=== PATIENT | female | born 1965 | race Asian ===

== ENCOUNTER 2017-10-19 17:31 | Emergency (ER) | payer OTHER ==
[~2017-10-19] VITALS: Ht 160 cm; Wt 63.4 kg
[~2017-10-19 17:31] MED LIST: ALLO100T PO; AMLO10TA80 PO; ATOR-2 PO; FOLI0.8T42 PO; INSLIS SUBCUT; METO-385 PO; lantus
[2017-10-20 00:34] VITALS: BP 150/70
== END 2017-10-20 00:35 | disposition home or self-care (01) ==
LOC: ER 17:31
DX: Z49.01 Encounter for fitting and adjustment of extracorporeal dialysis catheter (principal); N18.6 End stage renal disease; Z79.4 Long term (current) use of insulin; Z89.619 Acquired absence of unspecified leg above knee
CPT/HCPCS: 99283; Z7610

== ENCOUNTER 2018-08-29 19:19 | Inpatient (IN) | payer OTHER ==
[~2018-08-29] VITALS: Ht 157.5 cm; Wt 70.8 kg
[~2018-08-29 19:19] MED LIST changes: -lantus; +lantus SUBCUT
[2018-08-29 20:16] LABS: BASOPHILS % 0.5 % (0.0-2.0); EOSINOPHILS % 1.7 % (0.0-5.0); LYMPHOCYTES % 7.2 % (20.0-50.0); MEAN CORPUSCULAR HEMOGLOBIN 31.5 pg (28.0-32.0); MEAN CORPUSCULAR VOLUME 93.9 fL (81.0-99.0); MEAN PLATELET VOLUME 8.4 fl (7.4-10.4); MONOCYTES % 5.4 % (2.0-8.0); NEUTROPHILS % 85.2 % (40.0-76.0); PLATELET 131 x1000/uL (130-400); RED BLOOD CELL COUNT 2.13 mill/uL (4.2-5.4); RED CELL DISTRIBUTION WIDTH 15.2 % (11.6-14.6)
[2018-08-29 20:19] LABS: CHLORIDE 95 mEq/L (98-107)
[2018-08-29 20:21] LABS: HEMOGLOBIN. 6.7 g/dL (12.0-16.0)
[2018-08-29 20:22] LABS: PROTHROMBIN TIME 10.8 sec (9.6-11.0)
[2018-08-30] VITALS (15 sets, daily range): BP systolic 134–156; BP diastolic 66–89
[2018-08-30] MEDS ORDERED: SEVE800T8 MT (00:59)
[2018-08-30] MEDS ORDERED: CHOL100046 PO (01:00)
[2018-08-30] MEDS ORDERED: CINA30 PO (01:01)
[2018-08-30] MEDS ORDERED: DEXTROSE 50% WATER 50ML SYRINGE IV PRN (01:15)
[2018-08-30] MEDS ORDERED: MORPHINE SULFATE 4 MG/ML CPJ (NOT FOR IM USE) IV PRN (01:15)
[2018-08-30] MEDS ORDERED: CLONIDINE 0.1MG TABLET PO PRN (01:15)
[2018-08-30] MEDS: BLOOD SUGAR DIAGNOSTIC STRIP TEST SCH ×4 (06:23→21:28)
[2018-08-30] MEDS: INSULIN LISPRO 100 UNITS/ML SUBCUT SCH ×4 (08:03→21:00)
[2018-08-30 08:47] LABS: BASOPHILS % 0.6 % (0.0-2.0); EOSINOPHILS % 2.2 % (0.0-5.0); HEMATOCRIT. 26.8 % (36.0-48.0); HEMOGLOBIN. 9.1 g/dL (12.0-16.0); MEAN CORPUSCULAR HEMOGLOBIN 30.9 pg (28.0-32.0); MEAN PLATELET VOLUME 8.5 fl (7.4-10.4); MONOCYTES % 5.7 % (2.0-8.0); NEUTROPHILS % 79.5 % (40.0-76.0); PLATELET 124 x1000/uL (130-400); RED BLOOD CELL COUNT 2.94 mill/uL (4.2-5.4); RED CELL DISTRIBUTION WIDTH 15.9 % (11.6-14.6); TOTAL IRON BINDING CAPACITY 268 ug/dL (250-450)
[2018-08-30] MEDS ORDERED: SEVELAMER CARBONATE 800 MG TABLET PO SCH (09:00)
[2018-08-30] MEDS: FOLIC ACID/VITAMIN B COMP W-C TABLET PO SCH (09:00)
[2018-08-30] MEDS ORDERED: INSULIN LISPRO SUBCUT SCH (09:00)
[2018-08-30] MEDS ORDERED: CINACALCET HCL 30MG TABLET PO SCH (09:00)
[2018-08-30] MEDS: CHOLECALCIFEROL (D3) 1000 UNIT TABLET PO SCH (09:11)
[2018-08-30] MEDS: AMLODIPINE 10MG TABLET PO SCH (09:13)
[2018-08-30] MEDS ORDERED: INSULIN GLARGINE UD 100 UNITS/ML SYR SUBCUT SCH (10:00)
[2018-08-30] MEDS ORDERED: PANTOPRAZOLE SODIUM 40 MG/VIAL IV SCH (11:00)
[2018-08-30] MEDS: PANTOPRAZOLE SODIUM 40 MG/VIAL IV SCH (16:33)
[2018-08-30] MEDS ORDERED: ATORVASTATIN CALCIUM 40MG TABLET PO SCH (21:00)
[2018-08-30] MEDS ORDERED: EPOETIN ALFA 10000UNITS/ML VIAL SUBCUT SCH (21:00)
[2018-08-31] VITALS: BP 141/54
[2018-08-31 04:00] VITALS: BP 137/58
[2018-08-31 06:00] LABS: BASOPHILS % 0.8 % (0.0-2.0); EOSINOPHILS % 6.5 % (0.0-5.0); HEMATOCRIT. 23.8 % (36.0-48.0); HEMOGLOBIN. 8.2 g/dL (12.0-16.0); LYMPHOCYTES % 15.3 % (20.0-50.0); MEAN CORPUSCULAR VOLUME 90.4 fL (81.0-99.0); MEAN PLATELET VOLUME 8.4 fl (7.4-10.4); NEUTROPHILS % 68.4 % (40.0-76.0); PLATELET 122 x1000/uL (130-400); RED BLOOD CELL COUNT 2.63 mill/uL (4.2-5.4); RED CELL DISTRIBUTION WIDTH 16.2 % (11.6-14.6)
[2018-08-31] MEDS: BLOOD SUGAR DIAGNOSTIC STRIP TEST SCH ×3 (06:07→17:20)
[2018-08-31] MEDS: INSULIN LISPRO 100 UNITS/ML SUBCUT SCH ×3 (06:11→17:50)
[2018-08-31 08:00] VITALS: BP 127/61
[2018-08-31] MEDS: FOLIC ACID/VITAMIN B COMP W-C TABLET PO SCH (09:00)
[2018-08-31] MEDS: AMLODIPINE 10MG TABLET PO SCH (09:00)
[2018-08-31] MEDS: CHOLECALCIFEROL (D3) 1000 UNIT TABLET PO SCH (09:00)
[2018-08-31] MEDS: PANTOPRAZOLE SODIUM 40 MG/VIAL IV SCH ×2 (09:08→17:23)
[2018-08-31] MEDS ORDERED: INSULIN GLARGINE UD 100 UNITS/ML SYR SUBCUT SCH (10:00)
[2018-08-31] MEDS ORDERED: PROPOFOL 200MG/20ML VIAL IV ONE (10:05)
[2018-08-31] MEDS ORDERED: MIDAZOLAM HCL 2 MG/2 ML VIAL ONE (10:06)
[2018-08-31 11:49] VITALS: BP 157/67
[2018-08-31] MEDS ORDERED: SIMETHICONE 40 MG/0.6 ML 30ML ONE (13:40)
[2018-08-31] MEDS ORDERED: MIDAZOLAM HCL 2 MG/2 ML VIAL IV PRN (13:40)
[2018-08-31] MEDS ORDERED: MIDAZOLAM HCL 5 MG/5 ML VIAL ONE (13:40)
[2018-08-31] MEDS ORDERED: FENTANYL CITRATE/PF 50MCG/ML 2ML VIAL ONE (13:40)
[2018-08-31] MEDS ORDERED: FENTANYL CITRATE/PF 50MCG/ML 2ML VIAL IV PRN (13:41)
[2018-08-31] MEDS ORDERED: BACTERIOSTATIC SODIUM CHLORIDE 0.9% 30ML VIAL IJ ONE (13:48)
[2018-08-31 15:58] VITALS: BP 156/73
[2018-08-31 16:35] LABS: HEMATOCRIT 26.8 % (36.0-48.0); HEMOGLOBIN 9.1 g/dL (12.0-16.0)
[2018-08-31] MEDS ORDERED: SUCRALFATE 1 G/10 ML UDC PO SCH (17:20)
[2018-08-31 17:39] VITALS: BP 145/73
== END 2018-08-31 18:15 | disposition home or self-care (01) | DRG 377 ==
LOC: ER 19:19 → EDBEDREQ 21:42 → EDBEDREQTM 21:42 → ENRESERV 22:41 → 6WST 23:59
PROVIDERS: ADMIT Internal Medicine; ATTEND Internal Medicine
PROC: 30233N1 Transfusion of Nonautologous Red Blood Cells into Peripheral Vein, Percutaneous Approach (ICD-10-PCS; principal; 2018-08-29)
PROC: 5A1D70Z Performance of Urinary Filtration, Intermittent, Less than 6 Hours Per Day (ICD-10-PCS; 2018-08-30)
PROC: 5A1D70Z Performance of Urinary Filtration, Intermittent, Less than 6 Hours Per Day (ICD-10-PCS; 2018-08-31)
DX: K92.2 Gastrointestinal hemorrhage, unspecified (principal); N18.6 End stage renal disease; I13.11 Hypertensive heart and chronic kidney disease without heart failure, with stage 5 chronic kidney disease, or end stage renal disease; E87.1 Hypo-osmolality and hyponatremia; N25.81 Secondary hyperparathyroidism of renal origin; D62 Acute posthemorrhagic anemia; I95.3 Hypotension of hemodialysis; E11.22 Type 2 diabetes mellitus with diabetic chronic kidney disease; D63.8 Anemia in other chronic diseases classified elsewhere; E87.5 Hyperkalemia; E87.8 Other disorders of electrolyte and fluid balance, not elsewhere classified; E78.5 Hyperlipidemia, unspecified; M10.9 Gout, unspecified; E55.9 Vitamin D deficiency, unspecified; Z99.2 Dependence on renal dialysis
CPT/HCPCS: 36415; 71045; 80048; 82728; 82962; 83540; 83550; 83605; 84484; 85014; 85018; 86850; 86900; 86920; 88305; 88313; 93005; 99291; C1893; C9113; J0885; J1815; J2250; J2704; J3010; J3490; J7040; P9016